=== PATIENT | male | born 1950 | race Caucasian/White ===

== ENCOUNTER 2018-03-12 16:52 | Emergency (ER) | payer MEDICARE ==
[2018-03-12] MEDS ORDERED: LISINOPRIL 5 MG TABLET PO STA (17:05)
--- NOTE | 2018-03-12 17:05 | ED Physician Documentation ---
History of Present Illness - Stated complaint Stated Complaint: HIGH BP - Chief complaint Chief Complaint: General - History obtained from History obtained from: Patient - History of Present Illness Timing: Other (He went to the eye doctors today for routine visit. They checked his blood pressure and it was quite high, he went from there to his family doctors who referred him here for his blood pressure. Before today the last time he had his blood pressure checked he said was the last time he was at his eye doctors and was probably about the same as it was today. There is no history of treated hypertension, no chest pain, trouble breathing, pedal edema or urinary complaints.) Review of Systems Constitutional: denies: Fever, Chills, Fatigue Cardiac: denies: Chest pain / pressure, Palpitations Respiratory: denies: Dyspnea, Cough GI: denies: Abdominal Pain PD PAST MEDICAL HISTORY - Present Medications Home Medications: Ambulatory Orders Medication Instructions Recorded Confirmed Calcium Carbonate/Vitamin D3 03/12/18 03/12/18 [Calcium 250-Vit D3 125 Tablet] Cholecalciferol (Vitamin D3) 03/12/18 [Vitamin D3] Lisinopril 20 mg PO DAILY #30 tablet 03/12/18 Naproxen 03/12/18 Turmeric Root Extract [Turmeric] 03/12/18 - Allergies Allergies/Adverse Reactions: Allergies Allergy/AdvReac Type Severity Reaction Status Date / Time No Known Drug Allergies Allergy Verified 03/12/18 17:02 PD ED PE NORMAL - Vitals Vital signs reviewed: Yes - General General: Alert and oriented X 3, No acute distress - Cardiac Cardiac: RRR, No murmur - Respiratory Respiratory: No respiratory distress, Clear bilaterally - Abdomen Abdomen: Non tender - Extremities Extremities: No edema, No calf tenderness / cord - Neuro Neuro: Alert and oriented X 3, Normal speech Results - Vitals Vitals: Vital Signs - 24 hr 03/12/18 03/12/18 16:59 18:03 Temperature 36.8 C Heart Rate 73 73 Respiratory 15 18 Rate Blood Pressure 248/105 H 211/104 H O2 Saturation 96 96 Oxygen O2 Source Room air - EKG (time done) 1716 Rate: Rate (enter#) (73) Rhythm: NSR [place]: Normal Intervals: Normal [place] QRS: Normal Ischemia: Normal ST segments Computer interpretation: Agree with computer - Labs Labs: Laboratory Tests 03/12/18 17:18 Sodium 137 Potassium 3.6 Chloride 100 L Carbon Dioxide 27 Anion Gap 10.0 BUN 15 Creatinine 0.9 Estimated GFR (MDRD) 84 L Glucose 113 H Calcium 8.9 Total Bilirubin 0.9 AST 46 H ALT 35 Alkaline Phosphatase 54 Total Protein 8.4 H Albumin 4.1 Globulin 4.3 H Albumin/Globulin Ratio 1.0 Lipase 21 L PD MEDICAL DECISION MAKING - ED course ED course: Sounds like the blood pressure is not an acute issue, he says his blood pressure was about the same the last time he went to the eye doctor and he does not have primary care, he has no complaints and diagnostics in the emergency department are basically unremarkable. He is started on a moderate dose of lisinopril pending PCP follow-up which his will help him arrange. Departure - Departure Disposition: 01 Home, Self Care Clinical Impression: Hypertension Qualifiers: Hypertension type: essential hypertension Qualified Code(s): I10 - Essential ( primary) hypertension Condition: Good Record reviewed to determine appropriate education?: Yes Instructions: Hypertension Dc Prescriptions: Lisinopril 20 mg PO DAILY #30 tablet Comments: Follow-up with your doctor early next week for blood pressure check and possible medication adjustments. Eat a low-salt diet and exercise. Discharge Date/Time: 03/12/18 18:03
[2018-03-12 17:39] LABS: ALBUMIN 4.1 g/dL (3.2-5.5); BILIRUBIN,TOTAL 0.9 mg/dL (0.2-1.0); CALCIUM 8.9 mg/dL (8.5-10.3); CREATININE 0.9 mg/dL (0.6-1.2); TOTAL PROTEIN 8.4 g/dL (6.7-8.2)
[2018-03-12 18:05] VITALS: BP 211/104
== END 2018-03-12 18:03 | disposition home or self-care (01) ==
LOC: ED 16:52
DX: I10 Essential (primary) hypertension (principal)
CPT/HCPCS: 36415; 80053; 83690; 93005; 99283; A9270

== ENCOUNTER 2018-12-23 10:01 | Outpatient (CLI) | payer MEDICARE ==
[2018-12-23 18:15] LABS: HB2 TOTAL 17.6 g/dL; HEMOGLOBIN A1C 0.52 g/dL; HEMOGLOBIN A1C % 4.9 % (4.6-6.2)
[2018-12-23 18:29] LABS: ALBUMIN/GLOBULIN RATIO 0.8 (1.0-2.2); ALKALINE PHOSPHATASE 67 IU/L (42-121); ALT ALANINE AMINOTRANSFERASE 23 IU/L (10-60); AST ASPARTATE AMINOTRANSFERASE 34 IU/L (10-42); BILIRUBIN,TOTAL 0.9 mg/dL (0.2-1.0); BUN - BLOOD UREA NITROGEN 11 mg/dL (6-20); CALCIUM 9.3 mg/dL (8.5-10.3); CARBON DIOXIDE - CO2 25 mmol/L (21-32); CHLORIDE 97 mmol/L (101-111); CHOL/HDL RATIO 4.9 (<5.0); CHOLESTEROL 210 mg/dL; CREATININE 1.3 mg/dL (0.6-1.2); GFR - MDRD 55 (>89); GLUCOSE 105 mg/dL (70-100); HDL CHOLESTEROL 43 mg/dL; LDL CHOLESTEROL,CALCULATED 137 mg/dL; LDL/HDL RATIO 3.2 (<3.6); SODIUM 134 mmol/L (135-145); TOTAL PROTEIN 8.8 g/dL (6.7-8.2); VLDL CHOLESTEROL 30 mg/dL
== END 2018-12-23 10:02 | disposition home or self-care (01) ==
LOC: LAB.F 10:01
PROVIDERS: ATTEND Internal Medicine
DX: I10 Essential (primary) hypertension (principal); E66.9 Obesity, unspecified
CPT/HCPCS: 36415; 80053; 80061; 83036; 83721